=== PATIENT | female | born 1945 | race Caucasian/White ===

== ENCOUNTER → 2017-03-13 | Outpatient (CLI) | payer MEDICARE, OTHER ==
[~2017-03-13] MED LIST: ASPI81TA94 PO; CALC-635 PO; CHOL200022 PO; GOLYTE PO; LOSA-51 PO; MULT-820 PO; POTA10CA40 PO; [UNRECOGNIZED DRUG - CODE] PO
== END ==
LOC: LAB 08:21
PROVIDERS: ATTEND Anesthesiology
DX: Z01.812 Encounter for preprocedural laboratory examination (principal); H02.102 Unspecified ectropion of right lower eyelid; H02.105 Unspecified ectropion of left lower eyelid; H53.453 Other localized visual field defect, bilateral; H02.403 Unspecified ptosis of bilateral eyelids
CPT/HCPCS: 36415; 82040; 82247; 82310; 82374; 82435; 82565; 82947; 84075; 84132; 84155; 84295; 84450; 84460; 84520

== ENCOUNTER → 2018-01-16 | Outpatient (CLI) | payer MEDICARE, OTHER ==
[~2018-01-16] MED LIST changes: +CHOL200018 PO; -CHOL200022 PO; +LACT1CAP6 PO
--- NOTE | 2018-01-19 16:06 | RADIOLOGY IMAGING REPORT ---
FACILITY: [facility] PATIENT NAME: ALLI KEYS : [id number] MR: [id number] V: [id number] EXAM DATE: [id number] ORDERING PHYSICIAN: ANGUS BLOCK TECHNOLOGIST: Dena Be PROCEDURE:BILATERAL DIGITAL SCREENING MAMMOGRAM WITH CAD ASSISTED INTERPRETATION & 3D TOMOSYNTHESIS COMPARISON:Prior mammograms 12/25/16, 12/25/15. INDICATIONS:SCREENING, PRIOR BENIGN RIGHT SIDED BREAST BIOPSY. FINDINGS: There is scattered fibroglandular tissue. No suspicious mass, microcalcification or architectural distortion. No change compared to priors. DIAGNOSTIC CATEGORY 1--NEGATIVE. RECOMMENDATIONS: ROUTINE MAMMOGRAM AND CLINICAL EVALUATION. IMPRESSION: BIRADS 1: Negative. Dictated by: Phillip Perera on 01/19/2018 at 8:55 Transcribed by: GUZMAN on 01/19/2018 at 9:31 Approved by: Phillip Perera on 01/19/2018 at 16:05 [facility]
== END ==
LOC: MAMO 01:44
PROVIDERS: ATTEND Internal Medicine
DX: Z12.31 Encounter for screening mammogram for malignant neoplasm of breast (principal)
CPT/HCPCS: 77063; 77067

== ENCOUNTER → 2018-09-21 | Outpatient (CLI) | payer MEDICARE, OTHER ==
[~2018-09-21] MED LIST changes: +CYA1000 PO; +ROSU10TA PO
[2018-09-21 08:39] LABS: PLATELET COUNT, AUTOMATED 232 K/uL (150-450)
== END ==
LOC: LAB 08:12
PROVIDERS: ATTEND Emergency Medicine
DX: Z82.49 Family history of ischemic heart disease and other diseases of the circulatory system (principal)
CPT/HCPCS: 36415; 82465; 82607; 83718; 84478; 85025